=== PATIENT | male | born 1970 | race Caucasian/White ===

== ENCOUNTER 2017-01-10 02:46 | Emergency (ER) | payer SELFPAY ==
[~2017-01-10] VITALS: Ht 170.2 cm; Wt 113.0 kg
[2017-01-10] MEDS ORDERED: KETOROLAC 30MG/ML VIAL IM ONE (06:45)
[2017-01-10 06:57] VITALS: BP 137/99
== END 2017-01-10 08:02 | disposition home or self-care (01) ==
LOC: ER 02:46
DX: M54.9 Dorsalgia, unspecified (principal); E78.00 Pure hypercholesterolemia, unspecified; I10 Essential (primary) hypertension
CPT/HCPCS: 71010; 72070; 96372; 99284; J1885